=== PATIENT | male | born 1960 | race Hispanic/Latino ===

== ENCOUNTER 2020-08-19 11:50 | Emergency (ER) | payer MEDICAID ==
[2020-08-19] MEDS ORDERED: SODIUM BICARB 8.4% 50 MEQ/50 ML SYRINGE IV ONE (11:55)
[2020-08-19] MEDS ORDERED: EPINEPHrine 1 MG/10 ML SYRINGE ONE (11:55)
--- NOTE | 2020-08-19 12:03 | Emergency Department Report ---
ED CPR HPI - General Stated Complaint: CARDIAC ARREST Time Seen by Provider: 08/19/20 11:57 Source: EMS - History of Present Illness Initial Comments: Patient is 60 years old male with history of diabetes, congestive heart failure and COPD. Patient brought to the emergency room via EMS from home in a full cardiac arrest, CPR in progress. EMS stated that patient found by his son and agonal breathing. This is approximately 30 minutes prior to coming to the ER. EMS stated upon arrival patient was apneic. ACLS protocol immediately initiated by EMS. Marcell airway placed. Initial rhythm showed PEA. Upon arrival to the ER, ACLS protocol continued. Patient found to be in asystole. Patient remaining asystole. Patient pronounced at 11:54 AM. For further information please refer to code sheets. No family available at this moment. Complaint: stopped breathing -: minute(s) (45) Place: home Bystander CPR Performed: No Shock Advised: No Initial Findings in the Field: no pulse, PEA ROSC in the Field: No Associated Injuries: No Treatments Prior to Arrival: other airway device - Related Data Home Medications Medication Instructions Recorded Confirmed Last Taken Insulin Detemir [Levemir VIAL] 32 unit SQ QHS 07/18/20 07/18/20 Unknown Methadone [Dolophine] 5 mg PO Q8H 07/18/20 07/18/20 Unknown Potassium Chloride [K-Dur] 20 meq PO QDAY 07/18/20 07/18/20 Unknown Pravastatin Sodium [Pravastatin] 40 mg PO QHS 07/18/20 07/18/20 Unknown Sennosides [Senna] 8.6 mg PO QDAY PRN 07/18/20 07/18/20 Unknown lisinopriL [Lisinopril] 20 mg PO QDAY 07/18/20 07/18/20 Unknown Previous Rx's Medication Instructions Recorded Last Taken Type Furosemide [Lasix TAB] 40 mg PO QDAY #30 tablet 07/22/20 Unknown Rx Warfarin [Coumadin] 5 mg PO QDAY #30 tablet 07/22/20 Unknown Rx carvediloL [Coreg] 6.25 mg PO BID #60 tablet 07/22/20 Unknown Rx Allergies Allergy/AdvReac Type Severity Reaction Status Date / Time No Known Allergies Allergy Verified 08/20/14 17:47 ED Review of Systems ROS: Stated complaint: CARDIAC ARREST Other details as noted in HPI Comment: Unobtainable due to pts medical conditions ED Past Medical Hx - Past Medical History Hx Hypertension: Yes Hx Heart Attack/AMI: No Hx Congestive Heart Failure: Yes Hx Diabetes: Yes Hx Deep Vein Thrombosis: No Hx Pulmonary Embolism: No Hx Liver Disease: No Hx Sickle Cell Disease: No Hx Asthma: No Hx COPD: Yes Hx Tuberculosis: No Hx HIV: No Additional medical history: HIGH CHOLESTEROL - Surgical History Hx Coronary Stent: No Hx Open Heart Surgery: Yes (2011) Hx Pacemaker: No Hx Internal Defibrillator: Yes Hx Cholecystectomy: No Hx Appendectomy: No Hx Breast Surgery: No Additional Surgical History: Heart valve repair - Social History Smoking Status: Unknown if ever smoked - Medications Home Medications: Home Medications Medication Instructions Recorded Confirmed Last Taken Type Insulin Detemir [Levemir VIAL] 32 unit SQ QHS 07/18/20 07/18/20 Unknown History Methadone [Dolophine] 5 mg PO Q8H 07/18/20 07/18/20 Unknown History Potassium Chloride [K-Dur] 20 meq PO QDAY 07/18/20 07/18/20 Unknown History Pravastatin Sodium [Pravastatin] 40 mg PO QHS 07/18/20 07/18/20 Unknown History Sennosides [Senna] 8.6 mg PO QDAY PRN 07/18/20 07/18/20 Unknown History lisinopriL [Lisinopril] 20 mg PO QDAY 07/18/20 07/18/20 Unknown History Furosemide [Lasix TAB] 40 mg PO QDAY #30 tablet 07/22/20 Unknown Rx Warfarin [Coumadin] 5 mg PO QDAY #30 tablet 07/22/20 Unknown Rx carvediloL [Coreg] 6.25 mg PO BID #60 tablet 07/22/20 Unknown Rx ED Physical Exam - General General appearance: other (CPR in progress.) - Eye Pupils: Present: other (Pupils are 4 mm dilated and fixed.) - Respiratory Respiratory exam: Present: other (No spontaneous breathing.) - Cardiovascular Cardiovascular Exam: Present: other (No spontaneous heart tone.) - GI/Abdominal GI/Abdominal exam: Present: soft. Absent: distended - Extremities Exam Extremities exam: Present: other (Diabetic foot wound with dressing, foul- smelling to the right foot.) - Neurological Exam Neurological exam: Present: other (CPR in progress.) Critical Care Time: Yes Critical care time in (mins) excluding proc time.: 30 Critical care attestation.: If time is entered above; I have spent that time in minutes in the direct care of this critically ill patient, excluding procedure time. ED Disposition Clinical Impression: Cardiopulmonary arrest Disposition: DC-20 Is pt being admited?: No Condition: Stable
== END 2020-08-19 16:57 ==
LOC: ED 11:50
DX: I46.9 Cardiac arrest, cause unspecified (principal); I11.0 Hypertensive heart disease with heart failure; I50.9 Heart failure, unspecified; Z98.890 Other specified postprocedural states; Z79.899 Other long term (current) drug therapy
CPT/HCPCS: 92950; 99285; J0171